=== PATIENT | female | born 1970 | race Caucasian/White ===

== ENCOUNTER 2021-05-22 15:12 | Emergency (ER) | payer OTHER, SELFPAY ==
[2021-05-22 15:24] VITALS: BP 145/75; PULSE 100; RESP 20; TEMP 37.2; O2SAT 98
--- NOTE | 2021-05-22 15:36 | ED.ANIMALBIT ---
HPI - Animal Bite General Chief Complaint: Animal Bite Stated Complaint: Dog Bite Time Seen by Provider: 05/22/21 15:39 Source: patient and RN notes reviewed Mode of arrival: ambulatory Limitations: no limitations History of Present Illness HPI narrative: 51-year-old female presents with concern for laceration to the second digit of her right hand caused by dog bite 2 hours ago. Reports she cleaned the wound at home. Reports this occurred while she was working. She denies decreased sensation, strength, range of motion of the digit. She is up-to-date on her tetanus vaccination MD complaint: animal bite Related Data Home Medications Medication Instructions Recorded Confirmed albuterol sulfate 90 mcg INHALATION Q4-6H PRN 05/22/21 05/22/21 beclomethasone dipropionate [Qvar 40 mcg INHALATION DAILY 05/22/21 05/22/21 RediHaler] budesonide-formoterol [Symbicort] 160 inh INHALATION BID 05/22/21 05/22/21 naproxen 500 mg PO BID 05/22/21 05/22/21 tiotropium bromide [Spiriva with 18 mcg INHALATION DAILY 05/22/21 05/22/21 HandiHaler] Allergies Allergy/AdvReac Type Severity Reaction Status Date / Time No Known Allergies Allergy Verified 05/22/21 15:29 Review of Systems Review of Systems: CONSTITUTIONAL: Denies malaise, chills, sweats, or fever. SKIN: Reports laceration to second digit of the right hand MUSCULOSKELETAL: Denies muscle skeletal pain NEUROLOGIC: Denies numbness, weakness All systems reviewed & are unremarkable except as noted in HPI and below PMFSH Comments At time of signature, agree with nursing past medical, surgical, social and family history. There is no relevant family history pertinent to the presenting complaint Exam Narrative: GENERAL: Well-appearing, well-nourished, and in no acute distress. HEAD: Normocephalic EYES: PERRLA, conjunctivae clear NECK: Supple. CHEST: Speaks in full sentences. No respiratory distress. HEART: Regular rate and rhythm. Normal and equal peripheral pulses. EXTREMITIES: Second digit of right hand hallux normal strength and sensation. 5/5 strength with digit flexion, extension. Range of motion grossly normal. No cyanosis or edema noted. Normal digital cascade with flexion of fingers, median, ulnar and radial nerve intact. Normal sensation of each side of finger. Can perform 'okay' sign, 'cross over finger test of index and middle fingers' and 'thumbs up' sign. No scissoring. Normal thumb opposition. Good capillary refill and radial pulse. Distal capillary refill less than 3 seconds. Patient is right/left hand dominant SKIN: Warn, dry, intact, pink. 4 cm laceration into the subcutaneous tissue noted to the dorsal aspect of the second digit of the right hand NEURO: Alert and oriented x3. PSYCH: Normal mood and affect Course Course Emergency Course: Discussed with patient that this wound is possibly high risk for infection due to location, nature of the wound being a large flap, location of the wound on her finger. Explained in detail signs and symptoms of infection to watch out for and when to return for reevaluation. Patient is aware of diagnosis, understands and agrees to treatment plan. Anticipatory guidance given. Patient agrees to follow-up as directed and is aware of reasons to seek care at the emergency department. Portions of this record may have been created with voice recognition software Level of Care: Express Care Visit Vital Signs Vital signs: Vital Signs Temperature 98.9 F 05/22/21 15:24 Pulse Rate 100 05/22/21 15:24 Respiratory Rate 20 05/22/21 15:24 Blood Pressure 145/75 H 05/22/21 15:24 Pulse Oximetry 98 05/22/21 15:24 Temperature 98.9 F 05/22/21 15:24 Pulse Rate 100 05/22/21 15:24 Respiratory Rate 20 05/22/21 15:24 Blood Pressure 145/75 H 05/22/21 15:24 Pulse Oximetry 98 05/22/21 15:24 Reviewed. Procedures Laceration Laceration 1: Date: 05/22/21 Time: 15:47 Site: hand Side (If applic
[2021-05-22 15:49] VITALS: BP 145/75; PULSE 100; RESP 20; TEMP 37.2; O2SAT 98
== END 2021-05-22 16:32 | disposition home or self-care (01) ==
PROVIDERS: Emergency Provider Nurse Practitioner
DX: S61.210A Laceration without foreign body of right index finger without damage to nail, initial encounter (principal); W54.0XXA Bitten by dog, initial encounter; J45.909 Unspecified asthma, uncomplicated
CPT/HCPCS: 12002; 99213; G0463

== ENCOUNTER 2021-06-15 14:40 | Emergency (ER) | payer OTHER, SELFPAY ==
[2021-06-15 14:45] VITALS: BP 123/72; PULSE 77; RESP 16; TEMP 37.1; O2SAT 99
--- NOTE | 2021-06-15 15:09 | ED.WOUNDLAC ---
HPI - Wound/Laceration General Chief Complaint: Wound/Laceration Stated Complaint: Wound Check Time Seen by Provider: 06/15/21 15:05 Source: patient, RN notes reviewed and old records reviewed Mode of arrival: ambulatory Limitations: no limitations History of Present Illness HPI narrative: 51 year old female who presents to [facility] care with complaints of wound to the right index finger that initially occurred on the 22 of May that was from a dog bite and it was sutured with 8 stitches. Patient had sutures taken out on the of this month. Since Friday patient reports that she has had redness along the dorsal aspect of the right index finger and some yellowish drainage noted from wound with discomfort. Patient states that she has been putting some Neosporin ointment on the wound and it seems to of made it worse and covering it with a band-aide. 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 Patient reports that she has been taking Naproxen for her discomfort. Onset (ago): day(s) (2) Extremity Location: Right: hand (right dorsal index finger) Patient tetanus UTD: Yes Treatments prior to arrival: bandage and other (Neosporin) Related Data Home Medications Medication Instructions Recorded Confirmed albuterol sulfate 90 mcg INHALATION Q4-6H PRN 05/22/21 06/15/21 beclomethasone dipropionate [Qvar 40 mcg INHALATION DAILY 05/22/21 06/15/21 RediHaler] budesonide-formoterol [Symbicort] 160 inh INHALATION BID 05/22/21 06/15/21 naproxen 500 mg PO BID 05/22/21 06/15/21 tiotropium bromide [Spiriva with 18 mcg INHALATION DAILY 05/22/21 06/15/21 HandiHaler] Allergies Allergy/AdvReac Type Severity Reaction Status Date / Time cefpodoxime [From Vantin] Allergy Mild Rash Verified 06/15/21 15:22 metronidazole Allergy Mild Rash Verified 06/15/21 15:20 Review of Systems Review of Systems: CONSTITUTIONAL: Denies fever, chills, or sweats. EYES: Denies visual changes, redness, or discharge. ENT: Denies rhinorrhea, congestion, sore throat, or otalgia. CARDIOVASCULAR: Denies chest pain, palpitations, or edema. RESPIRATORY: Denies cough or dyspnea. GASTROINTESTINAL: Denies abdominal pain, nausea, vomiting, or diarrhea. GENITOURINARY: Denies dysuria or hematuria. SKIN: Denies rash or itching.red excoriation to dorsal aspect of right index finger where had previous stitches from a dog bite. MUSCULOSKELETAL: Denies back pain, joint pain, or myalgia. NEUROLOGIC: Denies headache, numbness, or weakness. PSYCHIATRIC: Denies anxiety or depression. All systems reviewed & are unremarkable except as noted in HPI and below PMFSH Past Medical History Medical History Arthritis Asthma Surgical History Surgical History H/O: hysterectomy History of tonsillectomy History of tubal ligation Social History Social History (Updated 06/17/21 @ 22:11 by Marquita Madison NP) Smoking status: Never smoker Alcohol intake: current Alcohol use details: social Substance use type: does not use Gender identity (if verbalized by the patient): Female Comments At time of signature, agree with nursing past medical, surgical, social and family history. There is no relevant family history pertinent to the presenting complaint Exam Narrative: GENERAL: Well-appearing, well-nourished, and in no acute distress. HEAD: Normocephalic, atraumatic. EYES: PERRLA and EOMI. ENT: Nares clear, no rhinorrhea or epistaxis. Mucous membranes moist.TM's normal with good light reflex, throat pink with no lesions or exudates, tonsils absent NECK: Supple.no lymphadenopathy CHEST: Clear to auscultation. No respiratory distress.SAO2 99% on room air HEART: Regular rate and rhythm. No murmur heard. Normal peripheral pulses. ABDOMEN: Soft, nontender, nondistended, normal active bowel sounds. EXTREMITIES: Normal ran
== END 2021-06-15 15:40 | disposition home or self-care (01) ==
PROVIDERS: Emergency Provider Registered Nurse; PCP Family Medicine
DX: L03.011 Cellulitis of right finger (principal); S61.210D Laceration without foreign body of right index finger without damage to nail, subsequent encounter; W54.0XXD Bitten by dog, subsequent encounter
CPT/HCPCS: 99213; G0463

== ENCOUNTER 2024-09-10 08:38 | Emergency (ER) | payer OTHER, SELFPAY ==
--- OUTSIDE RECORDS SUMMARY | 2024-09-10 08:41 | XMS_ITS | Clinical Summary ---
Author Organization [facility] Address [address] [place] [id number] Care Team Providers Care Hunting And Fishing Guide Name Role Phone George Galarza MD Primary Care Provider [phone] Allergies Active Allergy Reactions Criticality Noted Date Comments Cat Dander Itching,Swelling,Sneezing Medium 08/14/2019 Latex Rash Medium 04/29/2018 Metronidazole Rash Medium 12/17/2017 Metryl Hives Medium 03/03/2017 Cefpodoxime Diarrhea Low 03/03/2017 Medications VENTOLIN HFA 90 mcg/actuation inhaler 8 Active naproxen (NAPROSYN) 500 mg tablet 0 Active ipratropium (Atrovent HFA) 17 mcg/actuation inhaler 2 puffs four times daily 0 Active QVAR REDIHALER 40 mcg/actuation inhaler 9 Active triamcinolone (KENALOG) 0.5 % cream APPLY A THIN LAYER TO THE AFFECTED AREA(S) TRUNK BY TOPICAL ROUTE 2 TIMES PER DAY Active fluticasone propionate (FLONASE) 50 mcg/actuation nasal spray INSTILL 1 SPRAY INTO THE AFFECTED NOSTRIL(S) ONCE DAILY Active sulfamethoxazol e-trimethoprim (BACTRIM DS) 800-160 mg per tablet 0 Active betamethasone valerate (VALISONE) 0.1 % lotion Apply topically 2 (two) times a day 60 mL 2 0 Active Additional Information Patient not taking.Reported on 09/09/2022 Banophen 25 mg capsule 0 Active doxycycline 100 mg tablet 0 Active Bevespi Aerosphere 9-4.8 mcg inhaler 0 Active modafiniL (PROVIGIL) 200 mg tablet Take 1 tablet (200 mg total) by mouth daily 30 tablet 1 0 Active dextroamphetami ne-amphetamine (ADDERALL) 20 mg tablet Take 1 tablet (20 mg total) by mouth daily 30 tablet 0 Active Additional Information Patient not taking.Reported on 09/09/2022 zolpidem (AMBIEN) 5 mg tabletIndicatio ns:Sleep-Onset Insomnia Take 1 tablet (5 mg total) by mouth nightly as needed for sleep 30 tablet 1 0 Active budesonide-form oteroL (SYMBICORT) 160-4.5 mcg/actuation inhaler Symbicort 160 mcg-4.5 mcg/actuation HFA aerosol inhaler INHALE 2 PUFFS BY MOUTH TWICE DAILY DIRECTED Active traZODone (DESYREL) 50 mg tablet TAKE 1 TABLET BY MOUTH NEEDED AT BEDTIME FOR 30 DAYS Active Stiolto Respimat 2.5-2.5 mcg/actuation inhaler INHALE 2 PUFFS BY MOUTH ONCE DAILY DIRECTED 3 Active methylPREDNISol one (Medrol, Harvinder,) 4 mg DosepackIndicat ions:Acute cough follow package directions 21 tablet 3 Active Active Problems Problem Noted Date Diagnosed Date Multiple nodules of lung 07/03/2022 Insomnia 02/06/2022 Chronic obstructive lung disease 08/27/2021 Allergic rhinitis 08/22/2021 Dyspnea on exertion 04/18/2021 Gastroesophageal reflux disease without esophagi tis 04/18/2021 Marijuana user 04/18/2021 Anxiety 01/21/2020 Bacterial vaginosis 01/21/2020 Candidal vulvovaginitis 01/21/2020 Depressive disorder 01/21/2020 Asthma 11/17/2019 Pain in left knee 02/25/2019 Flatulence symptom 02/25/2019 Trigger finger of both hands 02/25/2019 Arthritis of hand 01/03/2019 Herpes zoster 01/03/2019 Decreased diffusion capacity of lung 12/04/2018 Heel pain 12/03/2018 History of alcohol abuse 08/10/2018 Periorbital edema of right eye 07/09/2018 Obesity with body mass index 30 or greater 05/11 Elevated blood-pressure read ing without diagnosis of hypertension 05/11/2018 Frequency of micturition 04/29/2018 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 02/27/2017 Well adult health check 02/26/2017 Menopause 12/26/2016 Mild persistent asthma 12/26/2016 Stress incontinence, female 12/26/2016 Tobacco user 12/26/2016 Immunizations Immunization Administration Dates Next Due PPD TEST 11/22/2020,11/24/2019 Surgical History Surgery Date Site/Laterality Comments SECTION 11/06/1989 TUBAL LIGATION 10/19/2007 - 11/17/2007 Medical History Medical History Date Comments Asthma Family History Medical History Relation Name Comments Breast cancer Mother's Sister Arthritis Other Diabetes Other Heart disease Other Hypertension Other Stroke Other Kidney disease Neg Hx Relation Name Status Comments Mother's Sister Other Social History Tobacco Use Types Packs/Day Years Used Date Smoking Tobacco: Former Cigarettes 1 39.6 S tarted: 1985 Smokeless Tobacco: Never Alcohol Use Standard Drinks/Week Comments No 0 (1 standard drink = 0.6 oz pur e alcohol) Comments No Sex and Gender Information Value Date Recorded Sex Assigned at Not on file Legal 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 Gender Identity Not on file Sexual Orientation Not on file Obstetrics History Para Term AB IAB SAB Ectopic Multiple Livin g Live Births 3 1 1 Date Outcome GA Total Labor Labor/2nd/3rd Weight Sex Type Anes PTL Patsy A1 A5 Name Clin Term Last Filed Vital Signs Vital Sign Reading Time Taken Comments Blood Pressure 138/80 09/09/2022 8:22 AM CDT Pulse 86 09/09/2022 8:22 AM CDT Temperature 36.7 C (98.1 F) 09/09/2022 8:22 AM CDT Respiratory Rate 12 09/09/2022 8:22 AM CDT Oxygen Saturation 98% 09/09/2022 8:22 AM CDT Inhaled Oxygen Concentration - - Weight 90.7 kg (200 lb) 09/09/2022 8:22 AM CDT Height 167.6 cm (5' 6) 09/09/2022 8:22 AM CDT Body Mass Index 32.28 09/09/2022 8:22 AM CDT Plan of Treatment Health Maintenance Due Date Last Done Comments Cervical Cancer Screening 1969 Colon Cancer Screening-Colonoscopy 1969 Depression Screening 1969 Hepatitis C Screening 1969 DTaP/Tdap/Td Vaccine (1 - Tdap) 02/04/1980 Hepatitis B Screening 1987 Regular Well Visit/Exam 18-64 1987 Pneumococcal vaccine <65 (1 of 2 - PCV) 02/04/1988 Zoster Vaccine (1 of 2) 2019 Breast Cancer Screening-Mammogram 07/11/2023 07/10/2022, 11/08/2020, 10/15/2019, Additional history exists Influenza Vaccine (#1) 2024 , 11/18/2019, 11/17/2019, Additional history exists Procedures Procedure Name Priority Date/Time Associated Diagnosis Comments SCREENING MAMMOGRAM BILATERAL W ALBIN Schedule Routine, Read Routine (OP Routine) 07/10/2022 2:51 PM CDT Screening mammogram, encounter for from Last 3 Months or Most Recently Relevant to Health Maintenance Results * Screening Mammogram Bilateral W Albin (07/10/2022 2:51 PM CDT) Anatomical Region Laterality Modality Breast Bilateral Mammography 07/12/2022 4:30 PM CDT Impressions 07/12/2022 4:30 PM CDT There is no mammographic evidence of malignancy. A 1 year screening mammogram is recommended. BI-RADS: 1 - Negative. The patient has been or will be contacted. The patient will be entered into a reminder system with a target due date of 1 year for her next mammogram. Electronically signed by: Haleigh Moctezuma M.D. Narrative 07/12/2022 4:30 PM CDT EXAMINATION: SCREENING MAMMOGRAM BILATERAL W ALBIN ORDERING HEALTHCARE PROVIDER: SELF SCREENING MAMMOGRAM HISTORY: Routine screening mammography. COMPARISON: 11/08/2020, 10/15/2019, 03/19/2018, 03/03/2017 TECHNIQUE: CC and MLO views of the bilateral breasts were obtained with digital technique using breast tomosynthesis with C view. Computer aided detection was utilized. FINDINGS: DENSITY: There are scattered fibroglandular elements in the bilateral breasts. BREASTS: There are no suspicious masses, suspicious calcifications, or other suspicious findings in either breast. There has been no suspicious interval change. us Self Screening Mammogram IMG MAMMO PROCEDURES Fi nal Result from Last 3 Months or Most Recently Relevant to Health Maintenance Insurance [facility] Care Teams Hunting And Fishing Guide Relationship Specialty Start Date End Date George Galarza MD PCP - General 09/30/19
--- OUTSIDE RECORDS SUMMARY | 2024-09-10 08:41 | XMS_ITS | Data Portability ---
Author Organization [place] [employer], Main Office Address [address] [place] [id number] Care Team Providers Care Metal Miner Name Role Phone CAMERON GARNER Primary Care Provider [phone] Assessment Encounter Date Assessment Date Assessment LastModified by Organization Details LastModified Time 11/12/2023 11/12/2023 Time spent with patient included: preparing to see patient by reviewing tests, obtaining and reviewing history, medical examination and evaluation, counseling and educating the patient, ordering medications and tests, documenting clinical information in EHR, independently interpreting results and communicating results to the patient for a total of 46 minutes. Not available 11/12/2023 11:21:37 02/26/2024 02/26/2024 Time spent with patient included: preparing to see patient by reviewing tests, obtaining and reviewing history, medical examination and evaluation, counseling and educating the patient, ordering medications and tests, documenting clinical information in EHR, independently interpreting results and communicating results to the patient for a total of 35 minutes. Not available 02/26/2024 13:01:55 06/23/2024 06/23/2024 Time spent with patient included: preparing to see patient by reviewing tests, obtaining and reviewing history, medical examination and evaluation, counseling and educating the patient, ordering medications and tests, documenting clinical information in EHR, independently interpreting results and communicating results to the patient for a total of 28 minutes. Not available 06/23/2024 11:37:59 Plan of Treatment Reminders Order Date Submit Date Provider Last Modified By Organization Details Last Modified Time Details Appointments Any 15 2024 10:00A M Lynette Ugalde NP Not available Not available Not available Lab noninvasi ve colorecta l cancer DNA + occult blood screening , QL, stool 2023 024 [email or web address] 2 [facility] (Cologuard Orders Only), [address], [address], [place], [address], 06/21/2024 11:58:45 CMP, serum or plasma 2023 024 KRIS [facility], [address] [place], [address], 12/03/2023 20:02:12 CBC w/ auto diff 2023 024 [email or web address], [address] [place], [address], 12/10/2023 08:02:35 hepatitis C virus Ab, serum 2023 024 [facility], [address] [place], [address], 12/10/2023 08:02:35 vitamin B12 + folate, serum or blood 2023 024 [email or web address], [address] [place], [address], 12/10/2023 08:02:35 vitamin D, 25-hydrox y, total, serum 2023 024 [facility], [address] [place], [address], 12/10/2023 08:02:35 TSH + free T4, serum 2023 024 [facility], [address] [place], [address], 12/10/2023 08:02:35 HbA1c (hemoglob in A1c), blood 2023 024 [facility], [address] [place], [address], 12/10/2023 08:02:36 lipid panel, blood 2023 024 [place] [facility], [address] , [place], [address], 12/03/2023 20:13:14 Referral cardiolog ist referral 2023 024 KRIS Peña MD, [address] [facility], [address], [place], [address], 09/25/2023 12:32:18 pulmonolo gist referral - Pt also has asthma. Needs spirometr y, asthma assessmen t and action plan. 2023 024 le Morgan MD, [address] [facility], [place], [address], 11/12/2023 08:00:30 gynecolog ist referral 2023 024 [email or web address] Jessica Thomas MD, [address], [address], [place], [address], 03/08/2024 15:43:18 gastroent erologist referral - Needs colonosco py 2023 024 [email or web address] Timbo Jean MD, [address], [address], [place], [address], 03/08/2024 15:43:16 Procedures None recorded. Surgeries None recorded. Imaging CT, chest, w/o contrast 2023 024 [email or web address] [facility], [address] [facility], [place], [address], 11/17/2023 11:11:40 MAMMO, screening , bilateral 2023 024 [email or web address] Not available 01/19/2024 14:49:01 Medication Orders Stiolto Respimat 2.5 mcg-2.5 mcg/actua tion solution for inhalatio n 2024 025 [facility], [address] [place] [address], [place], [address], 06/23/2024 11:39:35 Qvar RediHaler 40 mcg/actua tion HFA breath activated aerosol 2024 025 KRIS [facility], [address] [place], [place], [address], 06/23/2024 11:39:34 Anoro Ellipta 62.5 mcg-25 mcg/actua tion powder for inhalatio n [address] [facility], [address] [place], [place], [address], 04/22/2024 08:43:25 Pulmicort Flexhaler 180 mcg/actua tion breath activated [address] [facility], [address] [place] [address], [place], [address], 04/22/2024 08:43:21 Polytrim 10,000 unit-1 mg/mL eye drops [address] [facility], [address] [place] [address], [place], [address], 01/29/2024 19:01:36 Patient TargetsNo targets recorded. Patient Instructions Encounter Date Encounter Id Patient Instructions Last Modified By Organization Details Last Modified Time 09/17/2023 [id number] Follow up in 3 months Obtain labs Tests: Mammogram Referral: PLANT SECURITY GUARD-well woman exam Gastroenterology-C olonoscopy Pulmonology-asthma assessment Garment Tag Stringer-vascu lar disease Recommend: Tetanus vaccine Not available 09/17/2023 14:31:50 11/12/2023 [id number] complete PFT w/ post bronchodilator spirometry* - Please call patient to schedule. NPAN for [id number] per payor website. 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 Needs spirometry, asthma assessment and action plan. Referring Physician: Cherrie Linares, Internal Medicine, Encounter Date: 09/17/2023 Mine Engineering Superintendent Referral for Screening for malignant neoplasm of colon Needs colonoscopy Referring Physician: Cherrie Linares, Internal Medicine, Encounter Date: 09/17/2023 Rn Ed Referral for Sc reening for malignant neoplasm of cervix Referring Physician: Cherrie Linares, Internal Medicine, Encounter Date: 09/17/2023 Garment Tag Stringer Referral for Pe ripheral vascular disease Referring Physician: Cherrie Linares, Internal Medicine, Encounter Date: 09/17/2023 Results Created Date Observation Date Name Description Value Unit Range Abnormal Flag Note LastModifiedBy Organization Detail LastModifiedTime 11/06/19 24 11/05/2023 lower extre mity elect romyo gram (PROC ) No observ ation record ed. [email or web address] [facility] [address], [place], [address], 11/07/2023 15:01:10 11/06/19 24 11/05/2023 US, ellie x, zia s, lower extre mity No observ ation record ed. [email or web address] [facility] [address], [place], [address], 11/07/2023 15:01:44 12/19/19 24 12/19/2023 cardi ac stres s test No observ ation record ed. [email or web address] [facility] [address], [place], [address], 12/22/2023 08:46:24 01/29/20 24 01/29/2024 MAMMO , scree zia, bilat eral No observ ation record ed. le [address] , [place], [address], 02/24/2024 14:02:11 01/29/20 24 01/29/2024 LDCT, chest , for lung cance r olaf lizarraga No observ ation record ed. [facility] ([facility] Sched[facility]) [address] [place], [address], 02/26/2024 11:43:10 01/30/20 24 01/29/2024 compl ete PFT w/ post [facility] hodil ator malou metry * No observ ation record ed. [facility] ([facility] Sched[facility]) [address] [place], [address], 02/26/2024 07:42:52 05/20/19 25 05/19/2024 vascu lar exami natio n (PROC ) No observ ation record ed. [email or web address] [facility] [address], [place], [address], 05/20/2024 14:43:53 Result Notes None recorded. Problems Name Problem SNOMED Code Status Onset Date Resolution Date Notes Provider Name and Address Organization Details Recorded Time Asthma 791761306 Active 2019 Cherrie Linares APRN [address], [address] , [employer] 4 19:41:01 Body mass index 30+ - obesity 447005376 Active 2021 Cherrie Linares APRN [address], [address] , [employer] 4 19:41:12 Gastroesop hageal reflux disease without esophagiti s 976260305 Active 2021 Cherrie Linares APRN [address], [address] , [employer] 4 19:41:19 Dyspnea on exertion 92773370 Active 2021 Not Available [facility] 3 00:49:44 Marijuana user 179500302 Active 2021 Cherrie Linares APRN [address], [address], [place], [address] , [employer] [facility] 4 19:41:24 Ex-smoker 4780749 Active 2021 Not Available [facility] 3 00:49:44 Allergic rhinitis 58050570 Active 2021 Not Available [facility] 3 00:49:44 Chronic obstructiv e pulmonary disease 73856924 Active 2021 Cherrie Linares APRN [address], [address], [place], [address] , [employer] 4 19:41:15 Insomnia 185114440 Active 2021 Cherrie Linares APRN [address], [address], [place], [address] , [employer] [facility] 4 19:41:21 Multiple nodules of lung 224156357 Active 2022 Cherrie Linares APRN [address], [address], [place], [address] , [employer] 4 19:41:33 Vitamin D deficiency 39939210 Active 2023 Cherrie Linares APRN [address], [address], [place], [address] , [employer] [facility] 4 19:46:53 Conjunctiv itis 5694940 Active 2023 Cherrie Linares APRN [address], [address], [place], [address] , [employer] [facility] [employer] 4 14:25:33 Peripheral vascular disease 315088964 Active 2023 Cherrie Linares APRN [address], [address], [place], [address] , [employer] [facility] 4 17:09:33 Hyperlipid emia 20736663 Active 2023 Cherrie Linares, MENTALLY IMPAIRED TEACHER [address], [address], [place], [address] , [facility] [employer] [facility] [employer] [facility] 4 14:10:53 Eczema 80339266 Active 2023 Cherrie Linares, MENTALLY IMPAIRED TEACHER [address], [address], [place], [address] , [facility] [employer] [facility] 4 12:19:27 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 Procedures Surgical History Date Name Laterality Status Provider Name and Address Organization Details Recorded Time excision of fallopian tube and surgical removal of ectopic completed Not Available [facility] 04/17/2022 00:46:09 section completed Not Available [facility] 04/17/2022 00:46:09 Imaging Results None recorded. Procedure Notes None recorded. Medical Equipment None Reported. Allergies Allergen ID Allergen Name Allergen Category Reaction Reaction Severity Criticality Documentation Date Start Date Code Code System Note Provider Name and Address Organization Details Recorded Time 538 Vantin medicatio n Not available Not available Not available 04/17/2022 86504 3 RxNorm Not Available [facility] 3 00:53:25 539 metronida zole medicatio n Not available Not available Not available 04/17/2022 6922 RxNorm Not Available [facility] 3 00:53:25 540 latex environme nt,medica tion Not available Not available Not available 04/17/2022 87715 91 RxNorm Not Available [facility] 3 00:53:25 541 cat dander environme nt Not available Not available Not available 04/17/2022 94190 UNK Not Available [facility] 3 00:53:25 Medications Name Sig Start Date Stop Date Status Note LastModified by Organization Details LastModified Time fluconazol e 100 mg tablet TAKE ONE TABLET BY MOUTH A ONE-TIME DOSE AFTER COMPLETIN G ANTIBIOTI CS 11/11 completed Not Available Not Available Not Available nystatin 100,000 unit/mL oral suspension Take 5 mL 4 times a day by oral route as directed for 10 days. active Not Available Not Available No t Available venlafaxin e ER 37.5 mg capsule,ex tended release 24 hr 10/05 completed Not Available Not Available Not Available doxycyclin e hyclate 100 mg capsule TAKE 1 CAPSULE BY MOUTH TWICE DAILY 09/15 completed Not Available Not Available Not Available clindamyci n HCl 300 mg capsule TAKE 1 CAPSULE BY MOUTH THREE TIMES DAILY 09/15 completed Not Available Not Available Not Available albuterol sulfate 2.5 mg/3 mL (0.083 %) solution for nebulizati on Inhale 3 mL 3 times a day by nebulizat ion route as directed for 30 days. active Not Available Not Available No t Available trazodone 50 mg tablet TAKE 1 TABLET BY MOUTH NEEDED AT BEDTIME active Not Available Not Available No t Available atorvastat in 10 mg tablet Take 1 tablet by mouth once daily active Not Available Not Available No t Available cimetidine 400 mg tablet active Not Available Not Available Not Available famotidine 40 mg tablet TAKE 1 TABLET BY MOUTH ONCE DAILY IN THE EVENING FOR 30 DAYS 08/22 completed Not Available Not Available Not Available prednisone 20 mg tablet Take 2 tablets every day by oral route in the morning for 5 days. active Not Available Not Available No t Available betamethas one valerate 0.1 % lotion APPLY LOTION EXTERNALL Y TO AFFECTED AREA TWICE DAILY TO HANDS active Not Available Not Available No t Available clopidogre l 75 mg tablet active Not Available Not Available Not Available sulfametho xazole 800 mg-trimeth oprim 160 mg tablet active Not Available Not Available No t Available cephalexin 500 mg capsule TAKE 1 CAPSULE BY MOUTH EVERY 12 HOURS 08/22 completed Not Available Not Available Not Available dextroamph etamine-am phetamine 20 mg tablet active Not Available Not Available Not Available polymyxin B sulfate 10,000 unit-trime thoprim 1 mg/mL eye drops INSTILL 1 DROP INTO AFFECTED EYE(S) BY OPHTHALMI C ROUTE EVERY 6 HOURS 01/28 completed Not Available Not Available Not Available Banophen 25 mg capsule active Not Available Not Available Not Available montelukas t 10 mg tablet Take 1 tablet every day by oral route in the evening for 30 days. 09/16 completed Not Available Not Available Not Available clindamyci n 2 % vaginal cream APPLY 1 CREAM VAGINALLY ONCE DAILY FOR 7 DAYS 06/23 completed Not Available Not Available Not Available mupirocin 2 % topical ointment APPLY OINTMENT TOPICALLY TO RIGHT INDEX TWICE DAILY 08/22 completed Not Available Not Available Not Available zolpidem 5 mg tablet active Not Available Not Available No t Available gabapentin 100 mg capsule 10/05 completed Not Available Not Available Not Available ergocalcif cathy (vitamin D2) 1,250 mcg (50,000 unit) capsule Take 1 capsule every week by oral route as directed. active Not Available Not Available No t Available clobetasol 0.05 % topical ointment APPLY A PEA SIZED AMOUNT TO ELBOWS BY TOPICAL ROUTE 2 TIMES PER DAY 01/28 completed Not Available Not Available Not Available estradiol 0.01% (0.1 mg/gram) vaginal cream INSERT 2 GRAMS VAGINALLY EVERY NIGHT FOR 14 NIGHTS, THEN INSERT 1 GRAMS VAGINALLY 3 TIMES WEEKLY (FRIDAY, FRIDAY AND FRIDAY) FOR MAINTAINE NCE DOSE. 11/11 completed Not Available Not Available Not Available methylpred nisolone 4 mg tablets in a dose pack TAKE BY MOUTH DIRECTED ON INSIDE OF PACKAGE 09/15 completed Not Available Not Available Not Available albuterol sulfate HFA 90 mcg/actuat ion aerosol inhaler INHALE 2 PUFFS BY MOUTH EVERY 4 TO 6 HOURS NEEDED active Not Available Not Available No t Available fluticason e propionate 50 mcg/actuat ion nasal spray,susp ension 10/05 completed Not Available Not Available Not Available doxycyclin e hyclate 100 mg tablet active Not Available Not Available Not Available gentamicin 0.1 % topical ointment APPLY OINTMENT EXTERNALL Y TO WOUND ONCE DAILY 09/15 completed Not Available Not Available Not Available naproxen 500 mg tablet TAKE 1 TABLET BY MOUTH TWICE DAILY AFTER A MEAL active Not Available Not Available No t Available amoxicilli n 875 mg-potassi um clavulanat e 125 mg tablet TAKE 1 TABLET BY MOUTH TWICE DAILY FOR 10 DAYS 09/16 completed Not Available Not Available Not Available Spiriva with HandiHaler 18 mcg and inhalation capsules INHALE THE CONTENTS OF 1 CAPSULE BY MOUTH ONCE DAILY DIRECTED FOR 30 DAYS 02/06 completed Not Available Not Available Not Available nitrofuran toin monohydrat e/macrocry stals 100 mg capsule TAKE 1 CAPSULE BY MOUTH EVERY 12 HOURS WITH FOOD 11/11 completed Not Available Not Available Not Available Flovent HFA 110 mcg/actuat ion aerosol inhaler active Not Available Not Available Not Available Flovent HFA 220 mcg/actuat ion aerosol inhaler Inhale 1 puff twice a day by inhalatio n route as directed for 30 days. 11/16 completed Not Available Not Available Not Available Atrovent HFA 17 mcg/actuat ion aerosol inhaler active Not Available Not Available Not Available Pulmicort Flexhaler 180 mcg/actuat ion breath activated Inhale 1 puff twice a day by inhalatio n route. 04/22 completed Not Available Not Available Not Available Symbicort 160 mcg-4.5 mcg/actuat ion HFA aerosol inhaler INHALE 2 PUFFS BY MOUTH TWICE DAILY DIRECTED 02/06 completed Not Available Not Available Not Available Dulera 100 mcg-5 mcg/actuat ion HFA aerosol inhaler 10/05 completed Not Available Not Available Not Available Anoro Ellipta 62.5 mcg-25 mcg/actuat ion powder for inhalation Inhale 1 puff every day by inhalatio n route as directed for 30 days. 04/22 completed Not Available Not Available Not Available [employer]ir[employer] Respimat 2.5 mcg/actuat ion solution for inhalation 07/03 completed Not Available Not Available Not Available Incruse Ellipta 62.5 mcg/actuat ion powder for inhalation 10/05 completed Not Available Not Available Not Available Stiolto Respimat 2.5 mcg-2.5 mcg/actuat ion solution for inhalation INHALE 2 PUFFS BY MOUTH ONCE DAILY DIRECTED active Not Available Not Available No t Available Bevespi Aerosphere 9 mcg-4.8 mcg HFA aerosol inhaler Inhale 2 puffs twice a day by inhalatio n route as directed for 30 days. 12/06 completed Not Available Not Available Not Available Qvar RediHaler 80 mcg/actuat ion HFA breath activated aerosol Inhale 2 puffs twice a day by inhalatio n route as directed for 30 days. 11/16 completed Rinse and spit after use Not Available Not Available Not Available Qvar RediHaler 40 mcg/actuat ion HFA breath activated aerosol INHALE 2 PUFFS BY MOUTH TWICE DAILY DIRECTED 2024 active Not Available Not Available Not Avai lable Vitals Date Recorded Body height Body mass index (BMI) Body weight Body temperature Heart rate Oxygen saturation Oxygen saturation in Arterial blood by Pulse oximetry Systolic And Diastolic Provider Name and Address Organization Details Last Updated DateTime 5 165.1 cm 32.8 kg/m2 26230.7 g 97.7 [degF] 74 /min 98 % 98 % 118/68 mm[Hg] Aleta Mera MA [facility] [employer] 5 12:25:31 Date Recorded Body height Body mass index (BMI) Body weight Body temperature Heart rate Oxygen saturation Oxygen saturation in Arterial blood by Pulse oximetry Systolic And Diastolic Provider Name and Address Organization Details Last Updated DateTime 5 165.1 cm 32.6 kg/m2 42285.1 g 97.9 [degF] 82 /min 98 % 98 % 122/74 mm[Hg] Aleta Mera MA [facility] [employer] 5 11:19:59 Date Recorded Body height Body mass index (BMI) Body weight Body temperature Heart rate Respiratory rate Oxygen saturation Oxygen saturation in Arterial blood by Pulse oximetry Systolic And Diastolic Provider Name and Address Organization Details Last Updated DateTime 4 165.1 cm 32.8 kg/m2 73673.7 g 98 [degF] 80 /min 16 /min 97 % 97 % 94/60 mm[Hg] Kacy Holguin MA [facility] [employer] [facility] 4 14:04:08 Date Recorded Body height Body mass index (BMI) Body weight Body temperature Heart rate Oxygen saturation Oxygen saturation in Arterial blood by Pulse oximetry Systolic And Diastolic Provider Name and Address Organization Details Last Updated DateTime 4 165.1 cm 32.3 kg/m2 46190.9 2 g 98 [degF] 85 /min 97 % 97 % 110/60 mm[Hg] Aleta Mera MA [employer] 4 10:51:52 Date Recorded Body height Body mass index (BMI) Body weight Body temperature Heart rate Oxygen saturation Oxygen saturation in Arterial blood by Pulse oximetry Pain severity - 0-10 verbal numeric rating [Score] - Reported Systolic And Diastolic Provider Name and Address Organization Details Last Updated DateTime 4 165.1 cm 33.3 kg/m2 44892.4 7 g 96.8 [degF] 78 /min 96 % 96 % 5 122/70 mm[Hg] Kacy Holguin MA [employer] 4 14:14:51 Social History Question Answer Notes LastModified by Organization Details LastModified Time Tobacco Smoking Status Former Smoker quit 2017 Not Available [employer] 04/17/2022 00:45:02 What Is Your Level Of Caffeine Consumption? Occasional Tea Everyday [id number] Information not available 07/03/2022 How Much Tobacco Do You Chew? None [id number] Information not available 04/17/2022 In The 14 Days Before Symptom Onset, Have You Had Close Contact With A Laboratory-conf irmed COVID-19 While That Case Was Ill? No [id number] Information not available 04/17/2022 In The 14 Days Before Symptom Onset, Have You Had Close Contact With A Person Who Is Under Investigation For COVID-19 While That Person Was Ill? No [id number] Information not available 04/17/2022 What Type Of Diet Are You Following? REGULAR [id number] Information not available 04/17/2022 Which Illicit Or Recreational Drugs Have You Used? Marijuana Smokes Flower Form [id number] Information not available 04/17/2022 Do You Have An Electrostatic Air Filter? Yes Information not available 11/12/2023 Have There Been Any Changes To Your Family Or Social Situation? No Information not available 09/17/2023 When Did You Quit Smoking? 6-10yearssincelast cigarette [id number] Information not available 04/17/2022 Do You Have A Humidifier? Yes Information not available 11/12/2023 How Many Years Have You Used Illicit Or Recreational Drugs? 30 [id number] Information not available 04/17/2022 Do You Use Insect Repellent Routinely? No Information not available 09/17/2023 Where Do You Live? SingleLevelHouse Information not available 09/17/2023 Do You Have Moisture Problems In Your Home? No Information not available 11/12/2023 What Was The Date Of Your Most Recent Tobacco Screening? 06/23/2024 Information not available 06/23/2024 How Many Children Do You Have? 0 Information not available 09/17/2023 Do You Have Any Pets? Yes One Dog Inside [id number] Information not available 04/17/2022 What Is Your Relationship Status? Domestic Partner Information not available 09/17/2023 Do You Use Your Seat Belt Or Car Seat Routinely? Yes Information not available 09/17/2023 Do You Have Smoke And Carbon Monoxide Detectors In Your Home? Yes Information not available 09/17/2023 At What Age Did You Start Smoking Tobacco? 16 [id number] Information not available 04/17/2022 Are You Passively Exposed To Smoke? No Information not available 09/17/2023 Are There Any Smokers In Your House? No Information not available 09/17/2023 Do You Use Sunscreen Routinely? No Information not available 09/17/2023 How Many Years Have You Smoked Tobacco? 12 [id number] [id number] Information not available 04/17/2022 Have You Recently Traveled Abroad? No [id number] [id number] Information not available 04/17/2022 Have You Used IV Drugs? No [id number] Information not available 04/17/2022 Do You Have Any Dietary Restrictions? No [id number] Information not available 04/17/2022 Sex: Unknown Functional Status Question Answer Note LastModified by Organizat ion Details LastModified Time Do you use any illicit or recreational drugs? Yes [id number] Information not available 04/17/2022 Do you or have you ever used any other forms of tobacco or nicotine? No [id number] Information not available 04/17/2022 What is your level of alcohol consumption? None [id number] Information not available 04/17/2022 Are you currently employed? Yes Information not available 09/17/2023 Have you been exposed to chemicals or toxins? not that aware of Information not available 11/12/2023 What is your occupation? [employer] Information not available 12/17/2023 Do you or have you ever used e-cigarettes or vape? Never used electronic cigarettes [id number] Information not available 04/17/2022 What is your exercise level? Occasional [id number] Information not available 04/17/2022 Mental Status Question Answer Note LastModified by Organization D etails LastModified Time Do you feel stressed (tense, restless, nervous, or anxious, or unable to sleep at night)? [id number] Information not available 09/17/2023 Family History Relationship Description Onset Age of this Age Resolved Age Notes LastModified by Organization Details LastModified Time Father Malignant tumor of pharynx [id number] Not available 04/17/2022 00:46:14 Medical History No medical history recorded. Gynecological History Statement/Question Response How many live births 1 Date of Last Pap Current Control Method Menopause Date of Last Colonoscopy Date of Last Mammogram Date of LMP Obstetrics History GPAL:G 1 P 1 0 0 1 Type Value Multiple Births 0 Full Term 1 Induced 0 Spontaneous 0 Premature 0 Living 1 Ectopics 0 Total 1 Immunizations Vaccine Type Date Status Note Provider Nam e and Address Organization Details Recorded Time COVID-19, mRNA, LNP-S, PF, 100 mcg/0.5mL dose or 50 mcg/0.25mL dose 1 completed Cherrie Linares APRN [address], [facility] [address], [place], [address], [facility] 09/17/2023 14:12:24 COVID-19, mRNA, LNP-S, PF, 100 mcg/0.5mL dose or 50 mcg/0.25mL dose 1 completed Cherrie Linares APRN [address], [address], [place], [address], [employer] [facility] 09/17/2023 14:12:24 Influenza, split virus, quadrivalent, preservative 1 completed Not Available [facility] 04/17/2022 00:53:20 Influenza, split virus, quadrivalent, PF 0 completed [address] Su[address], [address], [place], [address], [employer] [facility] [employer] [facility] 09/17/2023 14:12:24 Influenza, split virus, quadrivalent, preservative 0 completed [address] Su[address], [address], [place], [address], [employer] [facility] 09/17/2023 14:12:24 Influenza, split virus, quadrivalent, preservative 0 completed MANNY Suarez [address], [address], [place], [address], [employer] [facility] 09/17/2023 14:12:24 Influenza, split virus, quadrivalent, preservative 9 completed MAN[address] Su[address], [address], [place], [address], [employer] [facility] 09/17/2023 14:12:24 Influenza, split virus, quadrivalent, preservative 8 completed MAN[address] Su[address], [address], [place], [address], [employer] [facility] 09/17/2023 14:12:24 Influenza, recombinant, quadrivalent, PF 2 completed [address] Su[address], [address], [place], [address], [employer] [facility] [employer] [facility] 09/17/2023 14:12:24 zoster recombinant 4 completed MAN[address] Su[address], [address], [place], [address], [facility] [employer] [facility] 09/17/2023 14:12:24 COVID-19, mRNA, LNP-S, PF, 100 mcg/0.5mL dose or 50 mcg/0.25mL dose 2 completed Cherrie Linares APRN [address], [address], [place], [address], [facility] [employer] [facility] 09/17/2023 14:12:24 Pneumococcal conjugate PCV20, polysaccharide [id number] conjugate, adjuvant, PF 4 completed Cherrie Linares APRN [address], [address], [place], [address], [facility] [employer] [facility] 09/17/2023 14:12:24 Pneumococcal conjugate PCV20, polysaccharide [id number] conjugate, adjuvant, PF 3 completed Cherrie Linares APRN [address], [address], [place], [address], [facility] [employer] [facility] 09/17/2023 14:12:24 COVID-19, mRNA, LNP-S, bivalent, PF, 30 mcg/0.3 mL dose 2 completed Cherrie Linares APRN [address], [address], [place], [address], [facility] [employer] [facility] 09/17/2023 14:12:24 COVID-19, mRNA, LNP-S, PF, 50 mcg/0.5 mL 3 completed Cherrie Linares APRN [address], [address], [place], [address], [facility] [employer] [facility] 09/17/2023 14:12:24 influenza, unspecified formulation 9 completed Cherrie Linares APRN [address], [address], [place], [address], [facility] [employer] [facility] 09/17/2023 14:12:24 Influenza, split virus, trivalent, preservative 4 completed Cherrie Linares APRN [address], [address], [place], [address], [facility] [employer] [facility] 09/17/2023 14:12:24 Influenza, split virus, quadrivalent, PF 3 completed Cherrie Linares APRN [address], [facility] [address], [place], [address], [facility] [employer] [facility] [employer] [facility] 09/17/2023 14:12:24 Influenza, split virus, quadrivalent, PF 7 completed Cherrie Linares APRN [address], [facility] [address], [place], [address], [facility] [employer] [facility] [employer] [facility] 09/17/2023 14:12:24 zoster recombinant 4 completed Cherrie Linares APRN [address], [facility] [address], [place], [address], [facility] [employer] [facility] [employer] [facility] 12/17/2023 14:24:47 COVID-19, mRNA, LNP-S, PF, 50 mcg/0.5 mL 4 completed Cherrie Linares APRN [address], [facility] [address], [place], [address], [facility] [employer] [facility] [employer] [facility] 12/17/2023 14:24:47 Influenza, split virus, trivalent, PF 4 completed Cherrie Linares APRN [address], [facility] [address], [place], [address], [facility] [employer] [facility] [employer] [facility] 12/17/2023 14:24:47 Past Encounters Encounter ID Performer Location Encounter Start Date Encounter Closed Date Diagnosis/Indication Diagnosis SNOMED-CT Code Diagnosis ICD10 Code Diagnosis Note [id number] Lucrecia Giles, [facility] [place] [address] [place] [address] 04/26/2020 00:00:00 04/26/2020 13:38:56 [id number] [facility] [place] [address] [place] [address] 06/21/2020 00:00:00 06/21/2020 13:39:10 [id number] [facility] [place] [address] [place] [address] 08/23/2020 00:00:00 08/23/2020 13:38:57 [id number] [facility] [place] [address] [place] [address] 10/03/2020 00:00:00 10/03/2020 14:42:28 [id number] [facility] [place] [address] [place] [address] 10/25/2020 00:00:00 10/25/2020 14:00:42 [id number] [facility] [place] [address] [place] [address] 12/06/2020 00:00:00 12/06/2020 15:00:03 [id number] [facility] [place] [address] [place] [address] 04/18/2021 00:00:00 04/18/2021 16:45:47 [id number] SRINI Acosta [facility] [place] [address] [place] [address] 08/22/2021 00:00:00 08/22/2021 15:02:42 [id number] MARIO Acosta [facility] [place] [address] [place] [address] 02/06/2022 00:00:00 02/06/2022 14:44:08 [id number] MARIO Acosta [facility] [place] [address] [place] [address] 07/03/2022 11:58:08 07/03/2022 12:48:10 Asthma 305908565 J45.909 ACT 17PFT in chart.Repe at entered to be completed prior to [facility] remains stable on Qvar and Stiolto with no exacerbati ons while on this regimenShe should remain on these, order sent todayInstr ucted on technique todayShe is aware of reportable signs and symptomsCu rrent on vaccinesRT C in 4-6 months, PRN for concerns Dyspnea on exertion 6084 5006 R06.09 6MWT normal.Inc rease exerciseAw aiting echocardio gramQuanti feron GOLD negative.A Lpha 1 MM normal.DANIELLE T with significan t reactions to cats and dogs.She is not wiling to re-home her dogAlso with reactions to dust mitesMarij uana cessatonWE ight loss Gastroesop hageal reflux disease without esophagitis 165230570 K21.9 Diet dependent - has been well controlled Discussed dietary modificati onsAvoid tight clothing.N o eating 2-3 hours prior to bedAvoid offending foods Elevate head of bed while sleeping Allergic rhinitis 333348 04 J30.9 Saline nasal rinses Multiple n odules of lung 681597219 R91.[address] chest - order entered Ex-smoker 1935052 Z87.89 1 Quit 2016, started in 1985 with on average 1 PPDLDCT completed 05/2021 with stable nodulesCT as re-rdered above Marijuana user 288755718 F12.90 Advised different delivery [id number] Briana ruiz MD [facility] Internal [facility] [address] [place] [address] 09/17/2023 13:52:58 09/17/2023 14:40:37 Chronic obstructive pulmonary disease 38737441 J44.9 Screening for disorder 201523226 Z13.9 Screening mammography 24 005509 Z12.31 Screening for malignant neoplasm of colon 223312764 Z12.11 Screening for malignant neoplasm of cervix 245104258 Z12.4 Conjunctivitis 0462909 H 10.9 Peripheral vascular disease 309268037 I73.9 [id number] Lynette Ugalde NP [facility] Pulmon[facility] [address] [place] [address] 11/12/2023 10:31:52 11/13/2023 14:53:19 Asthma 419843638 J45.909 ACT 16PFT in chart-repe at PFTShe remains stable on Qvar and Stiolto with no exacerbati ons while on this regimenShe should remain on these-do want her to start Zyrtec or similarIns tructed on inhaler technique todayShe is aware of reportable signs and symptomsCu rrent on vaccinesRT C in 4-6 months, PRN for concerns Multiple n odules of lung 462218451 R91.[address] chest-last CT nodules were stable-pas t hx of smoker and uses inhaled marijuana Dyspnea on exertion 6084 5006 R06.09 Increase exerciseRe viewed labs:Quant iferon GOLD negative.A Lpha 1 MM normal.DANIELLE T with significan t reactions to cats and dogs.She is not wiling to re-home her dogAlso with reactions to dust mitesMarij uana cessation- hesitant to change to different formWeight loss Gastroesop hageal reflux disease without esophagitis 102192579 K21.9 Diet dependent - has been well controlled Discussed dietary modificati onsAvoid tight clothing.N o eating 2-3 hours prior to bedAvoid offending foods Elevate head of bed while sleeping Allergic rhinitis 306822 04 J30.9 Saline nasal rinses Ex-smoker 5709770 Z87.89 1 Quit 2016, started in 1985 with on average 1 PPDLDCT completed 2022 with stable nodulesCT as re-ordered above Marijuana user 662483618 F12.90 Advised different delivery [id number] Briana ruiz MD [facility] Internal Med [facility] [address] , [place] [address] 12/17/2023 14:06:00 12/17/2023 14:45:09 Screening for malignant neoplasm of colon 593591934 Z12.11 [id number] Lynette Ugalde NP [facility] [place] [facility] [place] [address] [facility], [facility] [address] [place] [address] 02/26/2024 12:08:43 03/03/2024 13:44:20 Multiple nodules of lung 693416399 R91.[address] chest-last CT nodules were stable, did show enlarged lymph nodes, last mammogram 01/2024 wnl, and 12/2023 CBC wnl; aware to discuss with primary as well-past hx of smoker and uses inhaled marijuana Dyspnea on exertion 6084 5006 R06.09 Increase exerciseRe viewed labs:Quant iferon GOLD negative.A Lpha 1 MM normal.DANIELLE T with significan t reactions to cats and dogs.She is not willing to re-home her dogAlso with reactions to dust mitesMarij uana cessation- hesitant to change to different formWeight loss Gastroesop hageal reflux disease without esophagitis 536074133 K21.9 continue current treatment Allergic rhinitis 239827 04 J30.9 Saline nasal rinses Ex-smoker 5687236 Z87.89 1 Quit 2016, started in 1985 with on average 1 PPDLDCT completed 2023 with stable nodules Marijuana user 993569644 F12.90 Advised different delivery Asthma-chr onic obstructive pulmonary disease overlap syndrome 1847943426 2175061 J44.9 ACT on no maintenanc e inhaler: 13PFT completed on 01/2024 it abnormal-a sthma overl ap with copdInsura nce changed coverage of inhalers-t oo expensive for patient-wi ll rx Anoro and Pulmicort- to replace Stiloto and Qvar-sampl e of Stiloto given today-she is aware to discuss with pharmacist best replacemen t if still too expensiveA sthma Action plan discussedU se Albuterol only PRN-if using more discussed need for re-evaluat ionIn depth discussion about s/s that require evaluation Return in 4 months-maritza ner if new or worsening of s/s [id number] Lynette Ugalde NP [facility] Pulmon[facility] [address] [address] 06/23/2024 11:04:31 06/25/2024 08:00:12 Asthma-chronic obstructive pulmonary disease overlap syndrome 1867940462 0518834 J44.9 ACT on no maintenanc e inhaler: 17PFT completed on 01/2024 abnormal-a sthma overlap with copdInsura nce changed coverage of inhalers-t oo expensive for patient-wi ll continue Stiloto and Qvar-well controlled Asthma Action plan discussedU se Albuterol only PRN-if using more discussed need for re-evaluat ionIn depth discussion about s/s that require evaluation Return in 6 months-maritza ner if new or worsening of s/s Multiple n odules of lung 598462148 R91.[address] chest-last CT nodules were stable, did show enlarged lymph nodes, last mammogram 01/2024 wnl, and 12/2023 CBC wnl; aware to discuss with primary as well-past hx of smoker and uses inhaled marijuana Dyspnea on exertion 6084 5006 R06.09 Increase exerciseRe viewed labs:Quant iferon GOLD negative.A Lpha 1 MM normal.DANIELLE T with significan t reactions to cats and dogs.She is not willing to re-home her dogAlso with reactions to dust mitesMarij uana cessation- hesitant to change to different formWeight loss Gastroesop hageal reflux disease without esophagitis 627599581 K21.9 continue current treatment Allergic rhinitis 549409 04 J30.9 Saline nasal rinsesTake claritin/z yrtec or lorri daily during increased allergy symptoms Ex-smoker 7059872 Z87.89 1 Quit 2016, started in 1985 with on average 1 PPDLDCT completed 2023 with stable nodules Marijuana user 275799961 F12.90 Advised different delivery Health Concerns Section Related Observation LastModified by Organization Detai ls LastModified Time None Recorded Concern Status LastModified by Organization Details LastModified Time None Recorded Advance Directives Directive None Recorded Payers Insurance Date Sequence Insurance Name Policy Number Policy Saldana Covered Member ID Saldana Member ID Guarantor Name 06/23/2024 1 [facility] [place] [place] Tracy Grant [id number] Tracy Grant 06/19/2024 1 [facility] - DOS ON OR AFTER 20 (MEDICAID REPLACEMENT - HMO) Tracy Grant [id number] Tracy Grant Notes Date Note Type Note Provider Name and Address Organization Details Recorded Time 09/17/2023 text/html Tracy presents today to establish care as a new patient. She states that she was seeing a provider in [place] but does not want to drive there anymore. Cherrie Linares, MENTALLY IMPAIRED TEACHER [address], [address], [place], [address], [facility] [employer] 09/17/2023 14:33:10 11/12/2023 text/html AsthmaReported b y PatientHPIFor associated symptoms, patient reportsdyspneabut reportsno fever,no fatigue,no cough,no anorexia,no wheeze,no tachypnea,no retractions, andno sleep disturbance. For quality, patient reportswell-controlled . For severity, patient reportsno decrease in activities of daily living(she feels her allergies are high and breathing is worse at this time-not taking anything for allergies at this time). For timing, patient reportschronic. For context, patient reportsallergic rhinitis,gastroesophag eal reflux,obesity, andcopd. For aggravating factors, patient reportsdust mites,changes in weather, andanimal dander. For prior tests and treatments, patient reportsshort-acting beta agonist,long-acting beta agonist,inhaled glucocorticoid,spirome try,allergy blood testing, andtotal serum ige.hx:smoker, now smokes marijuana, on Qvar and Stiolota-using rescue inhaler 1-2 x a day, feels sob during visit in no distress and speaks full sentence-able to do ADL's without difficulty. notes sob with exertion-does not exercise-no chest pain or palpitations Lynette Ugalde NP [email or web address], [address], [place], [address], [employer] 11/12/2023 11:37:01 12/17/2023 text/html Tracy presents today for month follow up. She denies any issues at this time. She has seen pulmonology and is scheduled for her mammogram. 09/17/2023Tracy presents today to establish care as a new patient. She states that she was seeing a provider in [place] but does not want to drive there anymore. Cherrie Linares APRN [email or web address], [place], [address], [employer] 12/17/2023 14:37:17 02/26/2024 text/html AsthmaReported b y PatientHPIFor associated symptoms, patient reportsdyspneabut reportsno fever,no fatigue,no cough,no anorexia,no wheeze,no tachypnea,no retractions, andno sleep disturbance. For quality, patient reportswell-controlled . For severity, patient reportsno decrease in activities of daily living(she feels her allergies are high and breathing is worse at this time-not taking anything for allergies at this time). For timing, patient reportschronic. For context, patient reportsallergic rhinitis,gastroesophag eal reflux,obesity, andcopd. For aggravating factors, patient reportsdust mites,changes in weather, andanimal dander. For prior tests and treatments, patient reportsshort-acting beta agonist,long-acting beta agonist,inhaled glucocorticoid,spirome try,allergy blood testing, andtotal serum ige.hx:smoker, now smokes marijuana, on Qvar and Stiolota-using rescue inhaler 2-3 times a week recently less , [facility]-1 Asthma overlap COPD Lynette Ugalde NP [email or web address], [place], [address], [employer] 02/26/2024 13:23:33 06/23/2024 text/html AsthmaReported b y PatientHPIFor quality, patient reportswell-controlled . For severity, patient reportsno decrease in activities of daily livingandimproving. For timing, patient reportsinfrequent. For context, patient reportsallergic rhinitis,gastroesophag eal reflux, andcopd. For aggravating factors, patient reportsanimal danderandpollen. For alleviating factors, patient reportslong-acting beta agonist,inhaled glucocorticoid, andshort-acting beta agonist. For associated symptoms, patient reportsno fever,no fatigue,no cough,no anorexia,no dyspnea,no wheeze,no tachypnea,no retractions, andno sleep disturbance. For prior tests and treatments, patient reportsserum eosinophil count,allergy blood testing, andtotal serum ige.PFT noted overlap with COPD-she notes more congested recently-otherwise no new issues. No sob-not using albuterol inhaler more than 2-3 times a wekk Lynette Ugalde NP [email or web address], [place], [address], [employer] 06/23/2024 11:39:36 OBGyn Episode No OBEpisode recorded.
--- OUTSIDE RECORDS SUMMARY | 2024-09-10 08:41 | XMS_ITS | Referral Summary ---
Author Organization [facility] Address [address] [place] [address] Care Team Providers Care Practice Managers Name Role Phone George Galarza MD Primary Care Provider [phone] Allergies Active Allergy Reactions Criticality Noted Date [...] Administration Dates Next Due PPD TEST 11/22/2020,11/24/2019 Social History Tobacco Use Types Packs/Day Years Used Date Smoking Tobacco: Former Cigarettes 1 39.6 S tarted: 1985 Smokeless Tobacco: Never Alcohol Use Standard Drinks/Week Comments No 0 (1 standard drink = 0.6 oz pur e alcohol) Comments No Sex and Gender Information Value Date Recorded Sex Assigned at Not on file Legal 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
--- OUTSIDE RECORDS SUMMARY | 2024-09-10 08:41 | XMS_ITS | Encounter Summary ---
Author Organization [facility] Healthcare Address [address] [place] [address] Care Team Providers Care Retail Consultant Name Role Phone George Galarza MD Primary Care Provider [phone] Reason for Visit * Reason Onset Date Comments Scheduling Appointments 11/07/2020 Confirmi ng mammogram appt Encounter Details Date Type Department Care Team (Late st Contact Info) Description 11/07/2020 Telephone [facility] [address] [place] [id number] Katarzyna Guerrero RT Scheduling Appointments (Confirming mammogram appt) Social History Tobacco Use Types Packs/Day Years Used Date Smoking Tobacco: Former Cigarettes 0.5 16 2 2017 Smokeless Tobacco: Current Alcohol Use Standard Drinks/Week Comments No 0 (1 standard drink = 0.6 oz pur e alcohol) Comments No Sex and Gender Information Value Date Recorded Sex Assigned at Not on file 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
--- OUTSIDE RECORDS SUMMARY | 2024-09-10 08:41 | XMS_ITS | Clinical Summary ---
Author Organization [facility] Address [address] [place] [address] Phone Care Team Providers Care [employer] Teacher Name Role Phone Viji Vazquez MD Primary Care Provider Allergies Active Allergy Reactions Criticality Noted Date Comments Latex Rash Medium 04/29/2018 Metronidazole Rash 12/17/2017 Cefpodoxime Diarrhea 12/17/2017 Medications Qvar RediHaler 40 MCG/ACT AEROSOL, BREATH ACTIVATED INHALE 2 PUFFS BY MOUTH TWICE DAILY DIRECTED 4 Active naproxen (NAPROSYN) 500 MG Tablet TAKE 1 TABLET BY MOUTH TWICE DAILY AFTER A MEAL 4 Active traZODone (DESYREL) 50 MG Tablet TAKE 1/2 (ONE-HALF) TABLET BY MOUTH NEEDED AT BEDTIME 4 Active Stiolto Respimat 2.5-2.5 MCG/ACT Aerosol Solution INHALE 2 PUFFS BY MOUTH ONCE DAILY 4 Active ergocalciferol (VITAMIN D) 24822 UNIT Capsule TAKE 1 CAPSULE BY MOUTH ONCE A WEEK 4 Active budesonide-form oterol fumarate (SYMBICORT) 160-4.5 MCG/ACT Aerosol Symbicort 160 mcg-4.5 mcg/actuation HFA aerosol inhaler INHALE 2 PUFFS BY MOUTH TWICE DAILY DIRECTED Active Active Problems No known active problems Immunizations Immunization Administration Dates Next Due COVID-19, MRNA, LNP-S, BIVAL ENT , PFIZER, 30 MCG/0.3 ML (12+ Y/O) 01/19/2022 COVID-19, Mrna, Lnp-s, Pf, 5 0 mcg/0.5 mL 11/11/2022 Influenza Vaccine, Quadrivalent, PF 11/06/2022,1 02/23/2016 Influenza Vaccine,unspecifie d Formulation 02/17/2018 Influenza, Injectable, Quadrivalent 11/18,11/17/2019,12/03/2018,01/02 Influenza, Recombinant, Quadrivalent,injectable, Pf 01/19/2022 Influenza, Seasonal, Injecta ble, Undefined 01/04/2014 Pneumococcal conjugate PCV20 , polysaccharide [id number] conjugate, adjuvant, PF 11/11/2022 Tuberculin Skin Test; Purifi ed Protein Derivative Solutiol 11/22/2020,11/24/2019 Social History Tobacco Use Types Packs/Day Years Used Date Smoking Tobacco: Former Cigarettes Smokeless Tobacco: Never Tobacco Cessation:Counseling Given: Not Answered Alcohol Use Standard Drinks/Week Comments No 0 (1 standard drink = 0.6 oz pur e alcohol) Comments No Sex and Gender Information Value Date Recorded Sex Assigned at Not on file Legal Sex Female 11:38 PM CDT Gender Identity Not on file Sexual Orientation Not on file Last Filed Vital Signs Vital Sign Reading Time Taken Comments Blood Pressure 124/60 03/09/2023 2:11 PM METAL CONTROL COORDINATOR Pulse 83 03/09/2023 2:11 PM METAL CONTROL COORDINATOR Temperature 36.9 C (98.5 F) 03/09/2023 2:11 PM METAL CONTROL COORDINATOR Respiratory Rate 20 03/09/2023 2:11 PM METAL CONTROL COORDINATOR Oxygen Saturation 98% 03/09/2023 2:11 PM METAL CONTROL COORDINATOR Inhaled Oxygen Concentration - - Weight 77.6 kg (171 lb) 12/17/2017 6:17 PM CDT Height 167.6 cm (5' 6) 12/17/2017 6:17 PM CDT Body Mass Index 27.6 12/17/2017 6:17 PM CDT Plan of Treatment Health Maintenance Due Date Last Done Comments Hepatitis C Virus (HCV) Screening 1969 TdaP Immunization 1969 Hepatitis B Immunization (1 of 3 - 19+ 3-dose series) 02/04/1988 Pap Smear 1990 Cervical Cancer Screening (CCS) 1999 HPV/Cotest 1999 Cologuard 2014 Colonoscopy 2014 Colorectal Cancer Screening 2014 Immunochemical Fecal Occult Blood 2014 Zoster Immunization (1 of 2) 2019 Mammogram 07/11/2023 07/10/2022, 10/19, 10/15/2019, Additional history exists SARS-COV-2 Immunization ( season) 2023 11/11/2022, 01/19/2022, 03/16/2021, Additional history exists Influenza Immunization (#1) 10/18/202410/19, 01/19/2022, 12/06/2020, Additional history exists Respiratory Syncytial Virus (RSV) Immunization (Adult) (1 - 1-dose 75+ series) 02/04/2044 Pneumococcal Immunization (50+ years) Completed 11/11/2022 Pneumococcal Immunization Combined Discontinued 11/11/2022 Human Papillomavirus (HPV) Immunization Aged Out No longer eligible based on patient's age to complete this topic Meningococcal Immunization (ACWY) Aged Out No longer eligible based on patient's age to complete this topic Rotavirus Immunization Aged Out No lo nger eligible based on patient's age to complete this topic Insurance [employer] Care Teams [employer] Combination Teacher Relationship Specialty Start Date End Date Benjaming Viji Carlton MD [address] [place] [address] PCP - General Family Medicine 12/17/17
--- OUTSIDE RECORDS SUMMARY | 2024-09-10 08:41 | XMS_ITS | Clinical Summary ---
Author Organization [facility] Address [address] [place] [address] Care Team Providers Care Field Agent Name Role Phone Viji Solomon MD Primary Care Provider [phone] Source Comments [facility],non-owned Affiliates and Associated Physician Practices is amultiple site organization consisting of ambulatory clinics and hospital sitesin [place], [place], [place] and [place]. This disclosure is being madepursuant to the Care Everywhere program and may not contain all information available regarding this patient. Last updated 17.[facility] Allergies Active Allergy Reactions Criticality Noted Date Comments Cefpodoxime Diarrhea 12/17/2017 Latex Rash Medium 04/29/2018 Metronidazole Rash Medium 12/17/2017 Medications * Be aware that medications may not be up to date on this document. Alwaysverify current medications with the patient. VENTOLIN HFA 108 (90 BASE) MCG/ACT inhaler 03/02/2018 Active mometasone-formote rol (DULERA) 100-5 MCG/ACT inhaler 12/15/2017 Act taz Active Problems Problem Noted Date Diagnosed Date Stress incontinence, female 04/29/2018 Frequency of micturition 04/29/2018 Immunizations Immunization Administration Dates Next Due INFLUENZA VACCINE 02/17/2018 Family History Medical History Relation Name Comments Hypertension Maternal Grandfather Diabetes - Type 2 Maternal Grandmother Diabetes - Type 2 Mother Relation Name Status Comments Maternal Grandfather Maternal Grandmother Mother Social History Tobacco Use Types Packs/Day Years Used Date Smoking Tobacco: Former Cigarettes Q uit: 01/17/2018 Smokeless Tobacco: Never Alcohol Use Standard Drinks/Week Comments No 0 (1 standard drink = 0.6 oz pur e alcohol) Comments Unknown Sex and Gender Information Value Date Recorded Sex Assigned at Not on file 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 Gender Identity Not on file Sexual Orientation Not on file Last Filed Vital Signs Vital Sign Reading Time Taken Comments Blood Pressure 126/80 04/29/2018 10:57 AM CDT Pulse - - Temperature - - Respiratory Rate - - Oxygen Saturation - - Inhaled Oxygen Concentration - - Weight 80.3 kg (177 lb) 04/29/2018 10:57 AM CDT Height 167.6 cm (5' 6) 04/29/2018 10:57 AM CDT Body Mass Index 28.57 04/29/2018 10:57 AM CDT Plan of Treatment Health Maintenance Due Date Last Done Comments COLOGUARD (AGES 45-75) - COL ON CA SCREENING 1969 COLON MONITORING 1969 COLONOSCOPY - COLON CA SCREENING 1969 CT COLONOGRAPHY - COLON CA SCREENING 1969 Colorectal Cancer Screening 1969 FIT - COLON CA SCREENING 1969 FLEX SIG - COLON CA SCREENING 1969 LIPID TESTING 1969 HIV SCREENING 02/04/1984 HEPATITIS C SCREENING 01/30/1987 DTAP/TDAP/TD VACCINES (1 - Tdap) 02/04/1988 HEPATITIS B VACCINE (1 of 3 - 19+ 3-dose series) 02/04/1988 PAP SMEAR 1990 SCREENING FOR DIABETES 04/29/2018 PNEUMOCOCCAL VACCINE 50+ (1 of 1 - PCV) 2019 ZOSTER VACCINE (1 of 2) 2019 MAMMOGRAM 03/19/2020 03/19/2018 COVID-19 VACCINE (1 - 2023-2 5 season) 2023 DEPRESSION SCREENING 02/18/2024 INFLUENZA VACCINE (#1) 2024 02/17/2018 HIB VACCINE Aged Out No longer eligi ble based on patient's age to complete this topic HPV VACCINE Aged Out No longer eligi ble based on patient's age to complete this topic MENINGOCOCCAL (Group B) VACC INE SHARED DECISION-MAKING Aged Out No longer eligibl e based on patient's age to complete this topic MENINGOCOCCAL GROUPS A/C/Y/W VACCINE Aged Out No longer eligible b ased on patient's age to complete this topic Insurance [facility] [employer] Care Teams Field Agent Relationship Specialty Start Date End Date Viji Solomon MD [address] [place] [phone] PCP - General 04/29/18
[2024-09-10 08:50] VITALS: BP 130/81; PULSE 73; RESP 16; TEMP 36.6; O2SAT 99
--- NOTE | 2024-09-10 09:07 | ED_ITS ---
HPI - Skin/Abscess/Foreign Bdy General Chief complaint: Skin/Abscess/Foreign Body Stated complaint: Insect Bite Time Seen by Provider: 09/10/24 09:07 Source: patient Mode of arrival: ambulatory Limitations: no limitations History of Present Illness HPI narrative: 54-year-old female presents with complaint insect bite to left ankle for 1 week. Patient concerned for infection. Patient reports drainage. Afebrile. All systems reviewed and negative except as noted above. Related Data Home Medications ?Medication ?Instructions ?Recorded ?Confirmed ?Last Taken ?Type albuterol sulfate 90 mcg/actuation 90 mcg inhalation Q4-6H PRN 05/22/21 06/15/21 Unknown History aerosol inhaler Wheezing beclomethasone dipropionate 40 40 mcg inhalation DAILY 05/22/21 06/15/21 Unknown History mcg/actuation HFA breath activated aerosol (Qvar RediHaler) budesonide-formoterol HFA 160 160 inh inhalation BID 05/22/21 06/15/21 Unknown History mcg-4.5 mcg/actuation aerosol inhaler (Symbicort) naproxen 500 mg tablet 500 mg PO BID 05/22/21 06/15/21 Unknown History tiotropium bromide 18 mcg capsule 18 mcg inhalation DAILY 05/22/21 06/15/21 Unknown History with inhalation device (Spiriva with HandiHaler) atorvastatin 10 mg tablet mg 09/10/24 Unknown History tiotropium 2.5 mcg-olodaterol 2.5 inhalation 09/10/24 Unknown History mcg/actuation mist for inhalation (Stiolto Respimat) Allergies Allergy/AdvReac Type Severity Reaction Status Date / Time cefpodoxime (From Vantin) Allergy Mild Rash Verified 09/10/24 08:53 metronidazole Allergy Mild Rash Verified 09/10/24 08:53 Review of Systems Review of Systems: [facility] Past Medical History Medical History Arthritis Asthma Surgical History Surgical History H/O: hysterectomy History of tonsillectomy History of tubal ligation Social History Social History (Updated 06/17/21 @ 22:11 by Marquita Madison NP) Smoking status: Never smoker Alcohol intake: current Alcohol use details: social Substance use type: does not use Gender identity (if verbalized by the patient): Female Comments At time of signature, agree with nursing past medical, surgical, social and family history. There is no relevant family history pertinent to the presenting complaint. Exam Narrative: GENERAL: This is a well-nourished, well-developed patient, in no apparent distress. HEAD: normocephalic, atraumatic. EYES: PERRL. Sclera clear/white. Vision is grossly intact. EARS: External ears normal NOSE: External nose normal NECK: Neck supple, non-tender without lymphadenopathy, masses or thyromegaly. CARDIOVASCULAR: Regular rate and rhythm without murmurs, gallops, or rubs. RESPIRATORY: Clear to auscultation. Breath sounds equal bilaterally. No wheezes, rales, or rhonchi. SKIN: warm, Dry, intact without rash, good texture and turgor. To scabbed lesions to medial aspect of left ankle with surrounding erythema. 1 is 1 cm diameter, the other is 2 cm diameter. The larger lesion has Small amount purulent drainage. No fluctuance concerning for abscess. NEURO: awake, alert, and oriented to person, place and time. There were no obvious focal neurologic abnormalities. EXTREMITIES: No joint tenderness, effusion, or edema noted. Course Course Level of Care: Express Care Visit Vital Signs Vital signs: Vital Signs Temperature 36.6 C 09/10/24 08:50 Pulse Rate 73 09/10/24 08:50 Respiratory Rate 16 09/10/24 08:50 Blood Pressure 130/81 09/10/24 08:50 Pulse Oximetry 99 09/10/24 08:50 Oxygen Delivery Room Air 09/10/24 08:50 Temperature 36.6 C 09/10/24 08:50 Pulse Rate 73 09/10/24 08:50 Respiratory Rate 16 09/10/24 08:50 Blood Pressure 130/81 09/10/24 08:50 Pulse Oximetry 99 09/10/24 08:50 Oxygen Delivery Room Air 09/10/24 08:50 reviewed MDM - Skin/Abscess/Foreign Bdy MDM Narrative Medical decision making narrative: will treat infected insect bite with doxycycline. Recommend wound care, washing with soap and water daily. Patient is well-appearing, nontoxic. Differential Diagnosis Differential diagnosis: Likely abscess of skin or subcutaneous tissue, cellulitis, insect bites and impetigo Discharge Plan Discharge Clinical Impression: Insect bite, nonvenomous, of ankle, infected Qualifiers: Encounter type: initial encounter Laterality: left Qualified Code(s): S90.562A - Insect bite (nonvenomous), left ankle, initial encounter Patient Disposition: Home Condition: Stable Instructions: Antibiotic Form, Insect Bite or Sting (ED) Additional Instructions: Take antibiotic as prescribed until gone. Wash with mild soap and water daily. Follow-up with your doctor if not improving. Patient Language: Vietnamese Prescriptions: New doxycycline hyclate 100 mg capsule 100 mg PO BID 7 Days Qty: 14 0RF No Action mupirocin 2 % ointment 1 applic topical BID Qty: 22 0RF Rx Instructions: apply to right index cephalexin 500 mg capsule 500 mg PO Q12H Qty: 20 0RF atorvastatin 10 mg tablet Stiolto Respimat 2.5-2.5 mcg/actuation mist INHALATION naproxen 500 mg tablet 500 mg PO BID albuterol sulfate 90 mcg/actuation HFA aerosol inhaler 90 mcg INHALATION Q4-6H PRN (Reason: Wheezing) Qvar RediHaler 40 mcg/actuation HFA aerosol breath activated 40 mcg INHALATION DAILY Spiriva with HandiHaler 18 mcg capsule, w/inhalation device 18 mcg INHALATION DAILY budesonide-formoterol [Symbicort] 160-4.5 mcg/actuation HFA aerosol inhaler 160 inh INHALATION BID Follow-up/Referrals: UNKNOWN,DOCTOR [Primary Care Provider] - Time of Disposition: 09:11
== END 2024-09-10 09:18 | disposition home or self-care (01) ==
PROVIDERS: Emergency Provider Nurse Practitioner Family
DX: S90.562A Insect bite (nonvenomous), left ankle, initial encounter (principal); L08.9 Local infection of the skin and subcutaneous tissue, unspecified; W57.XXXA Bitten or stung by nonvenomous insect and other nonvenomous arthropods, initial encounter; J45.909 Unspecified asthma, uncomplicated; M19.90 Unspecified osteoarthritis, unspecified site
CPT/HCPCS: 99213; G0463